=== PATIENT | female | born 1990 | race Caucasian/White ===

== ENCOUNTER 2019-12-12 12:20 | Inpatient (IN) | payer OTHER ==
[2019-12-12] MEDS ORDERED: miSOPROStol 25 MCG 1/4 TAB (S0191) ONE (14:54)
[2019-12-12] MEDS ORDERED: PENICILLIN G POTASSIUM 5 MU VIAL ONE (17:23)
[2019-12-12] MEDS ORDERED: BUTORPHANOL 2 MG/ML INJ (J0595) ONE (17:57)
[2019-12-12] MEDS ORDERED: PROMETHAZINE INJ 25 MG/ML VIAL (J2550) ONE (17:59)
[2019-12-12] MEDS ORDERED: FENTANYL 2MCG/ML ROPIVACAINE 0.2% IN 0.9% NACL 100ML IVBAG ONE (19:22)
[2019-12-12] MEDS ORDERED: OXYTOCIN 30 UNITS IN 0.9% NaCl 500ML IV BAG (J2590) ONE (19:28)
[2019-12-13] MEDS ORDERED: IBUPROFEN 800 MG TAB ONE ×3 (03:53→20:35)
[2019-12-13] MEDS ORDERED: DOCUSATE SODIUM 100 MG CAP ONE (08:06)
[2019-12-14] MEDS ORDERED: ACETAMINOPHEN 500 MG TAB ONE (02:31)
[2019-12-14] MEDS ORDERED: IBUPROFEN 800 MG TAB ONE (08:40)
[2020-02-08 11:32] LABS: BASO % 0.4 % (0.0-1.0); EOS # 0.1 10^3/uL (0.0-0.5); EOS % 1.1 % (0.0-3.0); HEMATOCRIT 38.8 % (36.0-47.0); HEMOGLOBIN 13.2 g/dl (12.0-15.5); LYMPH # 1.5 10^3/uL (1.5-5.0); LYMPH % 15.9 % (24.0-44.0); MEAN CORPUSCULAR HEMOGLOBIN 32.8 pg (27.0-33.0); MEAN CORPUSCULAR VOLUME 96.5 fl (80.0-96.0); MONO # 0.7 10^3/uL (0.0-0.8); MONO % 8.1 % (0.0-5.0); NEUTROPHILS # 6.8 10^3/uL (1.5-8.5); NEUTROPHILS % 74.1 % (36.0-66.0); PLATELET COUNT, AUTOMATED 220 10^3/uL (150-450); RED BLOOD COUNT 4.02 10^6/uL (4.00-5.40); WHITE BLOOD COUNT 9.2 10^3/uL (4.0-10.0)
--- NOTE | 2020-02-14 16:38 | DS ---
DATE OF ADMISSION: 12/12/2019 DATE OF DISCHARGE: 12/14/2019 BRIEF HISTORY: This lady was admitted at 40 weeks gestation because of oligohydramnios and induction of labor. She is a 3 now para 3. She had a spontaneous vaginal delivery of a live male 7 pounds 2 ounces (3230 grams). Apgars of 8 and 9 at one and five minutes respectively. She was treated in time for GBS. She had a first-degree tear, which was over-sewn in usual fashion. On her second day, we discussed phlebitis, cystitis, mastitis, endometritis, cellulitis, diet, exercise, pain management; perineal, breast, and wound care. DISCHARGE PHYSICAL EXAMINATION: The rest of the examination was unremarkable. She is normocephalic, atraumatic. Neck with full range of motion. Pupils equal and reactive to light. Distal pulses symmetric. No evidence of DVT or superficial phlebitis. Chest was clear bilaterally to the bases. No wheezes or rhonchi. No CVA tenderness. Abdomen soft. Four quadrant bowel sounds are noted. DISCHARGE VITAL SIGNS: Blood pressure 108/68, respirations 16, pulse 80, temperature 98.1. LABORATORY DATA: Hemoglobin 13.2, hematocrit 38.8, and platelets 220,000. DISPOSITION: In summary, a term gestation delivered a live male . Discharged improved. Follow-up six weeks [facility]. Meds are dispensed at [facility]. All questions were answered, 20 minute discussion. [facility]
--- NOTE | 2020-02-15 08:08 | IPN ---
DATE: 12/12/2019 This lady requested circumcision of her male . After discussing risks and benefits of circumcision, the medical to non-medical indications, the penile block, and after care; she expressed understanding of penile block and aftercare. Signed the consent form. All questions were answered. Twenty minute discussion. We await the clearance by the line director. [facility]
== END 2019-12-14 21:50 | disposition home or self-care (01) | DRG 807 ==
LOC: M LDI 12:20
PROVIDERS: ADMIT Obstetrics & Gynecology; ATTEND Obstetrics & Gynecology
PROC: 10E0XZZ Delivery of Products of Conception, External Approach (ICD-10-PCS; principal; 2019-12-12)
PROC: 0HQ9XZZ Repair Perineum Skin, External Approach (ICD-10-PCS; 2019-12-12)
DX: O41.03X0 Oligohydramnios, third trimester, not applicable or unspecified (principal); Z37.0 Single live birth; Z3A.40 40 weeks gestation of pregnancy; O70.0 First degree perineal laceration during delivery; O99.824 Streptococcus B carrier state complicating childbirth; R63.6 Underweight